=== PATIENT | female | born 1960 | race Caucasian/White ===

== ENCOUNTER 2018-11-22 02:38 | Emergency (ER) | payer MEDICAID ==
[~2018-11-22] VITALS: Ht 167.6 cm; Wt 55.0 kg
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
--- NOTE | 2018-11-22 02:55 | NUR ---
RECEIVED REPORT FROM MARGARET MISHRA TO ASSUME CARE OF PT. PT. MOVED FROM ED 19 TO ED02 FOR SECURED ROOM. SITTER IN [place]. PT. AWARE OF NEED FOR UA.
--- NOTE | 2018-11-22 03:04 | NUR ---
L2k initiated by jail. Garcia aware and on chart.
--- NOTE | 2018-11-22 03:12 | NUR ---
DR. MERRILL WAS IN TO EVAL PT. AND DISCUSS POC. PT. PROVIDED WITH WATER PER REQUEST. DENIES OTHER NEEDS AT THIS TIME. ALL SAFETY MEASURES OBSERVED. ROOM SECURED AND SITTER IN [place].
[2018-11-22 03:22] LABS: BASOPHILS # (AUTO) 0.03 x10^3/uL (0-0.1); BASOPHILS % (AUTO) 1 % (0-1); EOSINOPHILS # (AUTO) 0.14 x10^3/uL (0-0.4); EOSINOPHILS % (AUTO) 2 % (1-7); LYMPHOCYTES # (AUTO) 0.95 x10^3/uL (1-3.4); LYMPHOCYTES % (AUTO) 16 % (22-44); MD NO; MEAN CORPUSCULAR HEMOGLOBIN 28.1 pg (27.0-34.8); MEAN CORPUSCULAR HGB CONC 33.2 g/dL (32.4-35.8); MEAN CORPUSCULAR VOLUME 84.5 fL (80-100); MEAN PLATELET VOLUME 9.1 fL (7.4-10.4); MONOCYTES # (AUTO) 0.99 x10^3/uL (0.2-0.8); MONOCYTES % (AUTO) 16 % (2-9); NEUTROPHILS % (AUTO) 65 % (42-75); PLATELET COUNT 413 x10^3/uL (130-400); RED BLOOD COUNT 4.85 x10^6/uL (3.82-5.3); RED CELL DISTRIBUTION WIDTH 15.3 % (9.6-15.2)
[2018-11-22 03:35] LABS: ALANINE AMINOTRANSFERASE 26 U/L (12-78); ALBUMIN 3.5 g/dL (3.4-5.0); ANION GAP 7 mmol/L (5-15); CALCIUM 8.5 mg/dL (8.5-10.1); CHLORIDE 108 mmol/L (98-107); CREATININE 0.74 mg/dL (0.55-1.02); SALICYLATE LEVEL 3.4 mg/dL (2.8-20.0)
[2018-11-22 03:45] LABS: ALKALINE PHOSPHATASE 93 U/L (45-117); BILIRUBIN,TOTAL 0.3 mg/dL (0.2-1.0)
[2018-11-22 04:04] LABS: ACETAMINOPHEN < 2 mcg/mL (10-30)
--- NOTE | 2018-11-22 04:41 | NUR ---
PT. RESTING ON GURNEY WITH EYES CLOSED. NADN. EVEN CHEST RISE AND FALL VISIBLE. ALL SAFETY MEASURES OBSERVED. ROOM REMAINS SECURED. SITTER IN [place].
--- NOTE | 2018-11-22 04:56 | NUR ---
WOKE PT. AND REQUESTED URINE SAMPLE. PT. STATES "I AM TOO DEHYDRATED, I DON'T HAVE TO PEE." PT. ENCOURAGED TO DRINK WATER PROVIDED TO HER.
--- NOTE | 2018-11-22 05:48 | NUR ---
PT. CONTINUES RESTING ON GURNEY CURLED UP IN POSITION RIGHT SIDE LYING. PT. CONTINUES TO REFUSE TO PROVIDE UIRNE SAMPLE AT THIS TIME. ROOM REMAINS SECURED. SITTER IN [place].
--- NOTE | 2018-11-22 06:25 | NUR ---
REQUESTED URINE SAMPLE FROM PT. AGAIN. PT. STATES "I DON'T HAVE TIME TO RIGHT NOW" PT. BED PLACED IN SITTING POSITION AND PT. DRANK 1 CUP OF WATER. 2ND CUP OF WATER AT BS. PT. DENIES NEEDS AT THIS TIME. ROOM REMAINS SECURED, SITTER IN [place].
[2018-11-22] MEDS ORDERED: POTASSIUM CHLORIDE 20 MEQ TAB.ER.PRT PO ONE (06:30)
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
[2018-11-22] MEDS ORDERED: CITA20TA9 PO (06:43)
[2018-11-22] MEDS ORDERED: CARI3CAP PO (06:43)
--- NOTE | 2018-11-22 06:55 | NUR ---
REPORT TO MARGARET BENNETT.
[2018-11-22 07:04] LABS: AMPHETAMINE SCREEN, URINE Positive (Negative); BARBITURATE SCREEN, URINE Negative (Negative); BENZODIAZEPINE SCREEN, URINE Negative (Negative); CANNABINOID SCREEN, URINE Positive (Negative); COCAINE SCREEN, URINE Negative (Negative); METHADONE SCREEN, URINE Negative (Negative); OPIATE SCREEN, URINE Negative (Negative)
[2018-11-22 07:15] VITALS: BP 114/68
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
[2018-11-22] MEDS ORDERED: POTASSIUM CHLORIDE 20 MEQ TAB.ER.PRT ONE (07:51)
--- NOTE | 2018-11-22 07:53 | NUR ---
PT PROVIDED WITH ED DIET SECURITY TRAY.
--- NOTE | 2018-11-22 08:31 | NUR ---
ROOM SETUP FOR TELEPSYCH.
--- NOTE | 2018-11-22 08:59 | NUR ---
PT RESTING ON [facility]. SITTER IN PLACE. ROM SECURE. NELSONN.
--- NOTE | 2018-11-22 10:09 | NUR ---
Pt resting on [place]. Sitter in place. Resp even an unlabored. KYLE.
--- NOTE | 2018-11-22 10:46 | NUR ---
report to SOC over phone.
--- NOTE | 2018-11-22 11:00 | NUR ---
Pt resting on [place]. Sitter in place. Resp even an unlabored. KYLE.
--- NOTE | 2018-11-22 11:46 | NUR ---
Report from SOC post assessmnet. SOC recommends legal hold for pt.
--- NOTE | 2018-11-22 12:48 | NUR ---
Report to RN on 3E.
--- NOTE | 2018-11-22 13:08 | NUR ---
pt provided with ED security diet tray by yaneli.
== END 2018-11-22 13:49 ==
LOC: ED 03:49
DX: F39 Unspecified mood [affective] disorder (principal); F31.9 Bipolar disorder, unspecified; R45.850 Homicidal ideations
CPT/HCPCS: 36415; 80053; 80307; 84443; 85025; 99284

== ENCOUNTER 2018-11-22 13:26 | Inpatient (IN) | payer MEDICAID ==
[~2018-11-22] VITALS: Ht 167.6 cm; Wt 59.5 kg
[~2018-11-22 13:26] MED LIST: CARI3CAP PO; CITA20TA9 PO
[2018-11-22 13:57] VITALS: BP 130/81
[2018-11-22] MEDS ORDERED: POLYETHYLENE GLYCOL 17 GM PACKET PO PRN (14:00)
[2018-11-22] MEDS ORDERED: BISACODYL 10 MG SUPP PR PRN (14:00)
[2018-11-22] MEDS ORDERED: PLEASE ENTER HEIGHT AND WEIGHT MC SCH (14:00)
[2018-11-22] MEDS ORDERED: ACETAMINOPHEN 325 MG TABLET PO PRN (14:00)
[2018-11-22 14:15] VITALS: BP 130/81
[2018-11-22 14:52] LABS: BASOPHILS # (AUTO) 0.05 x10^3/uL (0-0.1); BASOPHILS % (AUTO) 1 % (0-1); EOSINOPHILS # (AUTO) 0.27 x10^3/uL (0-0.4); EOSINOPHILS % (AUTO) 4 % (1-7); LYMPHOCYTES # (AUTO) 1.92 x10^3/uL (1-3.4); LYMPHOCYTES % (AUTO) 29 % (22-44); MD NO; MEAN CORPUSCULAR HEMOGLOBIN 28.5 pg (27.0-34.8); MEAN CORPUSCULAR HGB CONC 33.5 g/dL (32.4-35.8); MEAN CORPUSCULAR VOLUME 84.9 fL (80-100); MEAN PLATELET VOLUME 9.3 fL (7.4-10.4); MONOCYTES # (AUTO) 0.95 x10^3/uL (0.2-0.8); MONOCYTES % (AUTO) 14 % (2-9); NEUTROPHILS # (AUTO) 3.51 x10^3/uL (1.8-6.8); NEUTROPHILS % (AUTO) 52 % (42-75); PLATELET COUNT 404 x10^3/uL (130-400); RED BLOOD COUNT 4.68 x10^6/uL (3.82-5.3); RED CELL DISTRIBUTION WIDTH 15.7 % (9.6-15.2)
[2018-11-22 14:53] LABS: HCT (SEDRATE) 39.8 % (34.6-47.8)
[2018-11-22 14:56] LABS: ALBUMIN 3.1 g/dL (3.4-5.0); ANION GAP 6 mmol/L (5-15); CALCIUM 8.4 mg/dL (8.5-10.1); CHLORIDE 107 mmol/L (98-107)
[2018-11-22 15:12] LABS: ALANINE AMINOTRANSFERASE 25 U/L (12-78); ALKALINE PHOSPHATASE 110 U/L (45-117); BILIRUBIN,TOTAL 0.2 mg/dL (0.2-1.0); CHOL/HDL RATIO 2.7; CHOLESTEROL, TOTAL 135 mg/dL (140-239); CREATININE 0.75 mg/dL (0.55-1.02); HDL CHOL % 37 % (28-40); HDL CHOLESTEROL (DIRECT) 50 mg/dL (40-60); LDL CHOLESTEROL,CALCULATED 62 mg/dL (54-169); LDL/HDL RATIO 1.2 (0.5-3.0); T4 (THYROXINE) 7.2 mcg/dL (4.8-13.9); TOTAL PROTEIN 6.3 g/dL (6.4-8.2); TRIGLYCERIDES 114 mg/dL (50-200); VLDL CHOLESTEROL 23 mg/dL (0-25)
[2018-11-22 15:31] LABS: FOLATE LEVEL 13.8 ng/mL (3.1-17.5)
[2018-11-22 16:55] LABS: HEMOGLOBIN A1C 5.7 % (4.2-6.3)
[2018-11-22 19:19] VITALS: BP 119/67
[2018-11-22] MEDS: OLANZAPINE 5 MG TABLET PO SCH (20:04)
[2018-11-22] MEDS: BUPRENORPHINE/NALOXONE 2-0.5MG SL SCH (20:04)
[2018-11-22 21:40] LABS: CULTURE INDICATED? YES; MICROSCOPIC INDICATED
[2018-11-23 07:17] VITALS: BP 91/51
[2018-11-23] MEDS ORDERED: POTASSIUM CHLORIDE 20 MEQ TAB.ER.PRT PO SCH (08:00)
[2018-11-23 08:44] LABS: CALCIUM 8.3 mg/dL (8.5-10.1); CHLORIDE 110 mmol/L (98-107)
[2018-11-23 08:54] LABS: ANION GAP 6 mmol/L (5-15)
[2018-11-23] MEDS: SENNA/DOCUSATE TABLET PO SCH (09:41)
[2018-11-23] MEDS: BUPRENORPHINE/NALOXONE 2-0.5MG SL SCH ×2 (09:41→20:21)
[2018-11-23] MEDS: CITALOPRAM 20 MG TABLET PO SCH (09:43)
[2018-11-23 19:35] VITALS: BP 93/55
[2018-11-23] MEDS: OLANZAPINE 5 MG TABLET PO SCH (20:21)
[2018-11-23 21:16] LABS: MICROSCOPIC AUTO
[2018-11-23 21:21] LABS: CULTURE INDICATED? YES
[2018-11-24 07:17] VITALS: BP 103/65
[2018-11-24] MEDS: CITALOPRAM 20 MG TABLET PO SCH (08:41)
[2018-11-24] MEDS: BUPRENORPHINE/NALOXONE 2-0.5MG SL SCH ×2 (08:41→20:46)
[2018-11-24] MEDS: SENNA/DOCUSATE TABLET PO SCH (08:41)
[2018-11-24] MEDS ORDERED: LORazepam 1MG TABLET ONE (13:07)
[2018-11-24] MEDS ORDERED: LORazepam 1MG TABLET PO ONE (13:30)
[2018-11-24 16:26] VITALS: BP 104/58
[2018-11-24] MEDS: METHOCARBAMOL 500 MG TABLET PO PRN (16:26)
[2018-11-24] MEDS ORDERED: NICOTINE 21 MG/24 HR PATCH.TD24 ONE (18:07)
[2018-11-24] MEDS: NICOTINE 21 MG/24 HR PATCH.TD24 TD SCH (18:18)
[2018-11-24 19:45] VITALS: BP 94/58
[2018-11-24] MEDS: CEFDINIR 300 MG CAPSULE PO SCH (20:46)
[2018-11-24] MEDS: OLANZAPINE 5 MG TABLET PO SCH (20:46)
[2018-11-25 07:20] VITALS: BP 102/63
[2018-11-25] MEDS: SENNA/DOCUSATE TABLET PO SCH (08:59)
[2018-11-25] MEDS: CITALOPRAM 20 MG TABLET PO SCH (08:59)
[2018-11-25] MEDS: CEFDINIR 300 MG CAPSULE PO SCH ×2 (08:59→20:22)
[2018-11-25] MEDS: BUPRENORPHINE/NALOXONE 2-0.5MG SL SCH ×2 (08:59→20:22)
[2018-11-25] MEDS: NICOTINE 21 MG/24 HR PATCH.TD24 TD SCH (09:00)
[2018-11-25] MEDS ORDERED: BUPRENORPHINE/NALOXONE 2-0.5MG SL ONE (16:00)
[2018-11-25 19:33] VITALS: BP 96/58
[2018-11-25] MEDS: OLANZAPINE 5 MG TABLET PO SCH (20:22)
[2018-11-25] MEDS ORDERED: LORazepam 1MG TABLET PO ONE (21:30)
[2018-11-25] MEDS: CARBAMAZEPINE XR 200 MG TABLET PO SCH (21:30)
[2018-11-26 07:17] VITALS: BP 122/68
[2018-11-26] MEDS: CEFDINIR 300 MG CAPSULE PO SCH ×2 (09:36→19:53)
[2018-11-26] MEDS: CITALOPRAM 20 MG TABLET PO SCH (09:36)
[2018-11-26] MEDS: SENNA/DOCUSATE TABLET PO SCH (09:37)
[2018-11-26] MEDS: NICOTINE 21 MG/24 HR PATCH.TD24 TD SCH ×2 (09:37→09:52)
[2018-11-26] MEDS: BUPRENORPHINE/NALOXONE 2-0.5MG SL SCH ×2 (10:39→19:54)
[2018-11-26 14:25] VITALS: BP 116/86
[2018-11-26] MEDS: METHOCARBAMOL 500 MG TABLET PO PRN (14:31)
[2018-11-26 19:33] VITALS: BP 104/61
[2018-11-26] MEDS: CARBAMAZEPINE XR 200 MG TABLET PO SCH (19:53)
[2018-11-26] MEDS: OLANZAPINE 5 MG TABLET PO SCH (19:53)
[2018-11-27] MEDS ORDERED: HALOPERIDOL 5 MG/ML ONE (04:14)
[2018-11-27] MEDS ORDERED: LORazepam 2 MG/ML, 1ML ONE (04:14)
[2018-11-27] MEDS ORDERED: LORazepam 2 MG/ML, 1ML IM ONE (04:30)
[2018-11-27] MEDS ORDERED: HALOPERIDOL 5 MG/ML IM ONE (04:30)
[2018-11-27 08:28] VITALS: BP 108/63
[2018-11-27] MEDS: NICOTINE 21 MG/24 HR PATCH.TD24 TD SCH (09:00)
[2018-11-27] MEDS: BUPRENORPHINE/NALOXONE 2-0.5MG SL SCH ×2 (09:00→20:04)
[2018-11-27] MEDS: SENNA/DOCUSATE TABLET PO SCH (09:08)
[2018-11-27] MEDS: CEFDINIR 300 MG CAPSULE PO SCH ×2 (09:08→20:04)
[2018-11-27] MEDS: CITALOPRAM 20 MG TABLET PO SCH (09:08)
[2018-11-27] MEDS ORDERED: LORazepam 1MG TABLET ONE (13:11)
[2018-11-27] MEDS ORDERED: HALOPERIDOL 5 MG TABLET ONE (13:11)
[2018-11-27] MEDS ORDERED: LORazepam 1MG TABLET PO ONE (13:30)
[2018-11-27] MEDS ORDERED: HALOPERIDOL 5 MG TABLET PO ONE (13:30)
[2018-11-27 19:42] VITALS: BP 107/63
[2018-11-27] MEDS: CARBAMAZEPINE XR 200 MG TABLET PO SCH (20:05)
[2018-11-27] MEDS ORDERED: RISPERIDONE 1 MG TABLET PO SCH (21:00)
[2018-11-28 07:22] VITALS: BP 99/56
[2018-11-28] MEDS: CEFDINIR 300 MG CAPSULE PO SCH (08:44)
[2018-11-28] MEDS: BUPRENORPHINE/NALOXONE 2-0.5MG SL SCH (08:45)
[2018-11-28] MEDS: CARBAMAZEPINE XR 200 MG TABLET PO SCH (08:45)
[2018-11-28] MEDS: SENNA/DOCUSATE TABLET PO SCH (08:45)
[2018-11-28] MEDS: CITALOPRAM 20 MG TABLET PO SCH (08:45)
[2018-11-28] MEDS: NICOTINE 21 MG/24 HR PATCH.TD24 TD SCH (08:45)
== END 2018-11-28 15:00 | disposition left against medical advice (07) | DRG 885 ==
LOC: 3E 13:50
PROVIDERS: ADMIT Psychiatry & Neurology Psychosomatic Medicine; ATTEND Psychiatry & Neurology Psychosomatic Medicine
DX: F31.60 Bipolar disorder, current episode mixed, unspecified (principal); E44.1 Mild protein-calorie malnutrition; F11.20 Opioid dependence, uncomplicated; F15.20 Other stimulant dependence, uncomplicated; R45.851 Suicidal ideations; E87.6 Hypokalemia; F22 Delusional disorders; F60.3 Borderline personality disorder; R45.850 Homicidal ideations; Z68.21 Body mass index [BMI] 21.0-21.9, adult; S61.419A Laceration without foreign body of unspecified hand, initial encounter; S61.519A Laceration without foreign body of unspecified wrist, initial encounter; X78.9XXA Intentional self-harm by unspecified sharp object, initial encounter; Z96.643 Presence of artificial hip joint, bilateral; Z72.0 Tobacco use; R73.9 Hyperglycemia, unspecified; R79.89 Other specified abnormal findings of blood chemistry; Z88.1 Allergy status to other antibiotic agents
CPT/HCPCS: 36415; J0572; 71045; 80048; 80053; 80061; 81001; 82140; 82607; 82746; 83036; 84436; 84443; 85025; 85651; 86592; 87077; 87086; 87186; 93005; J1630; J2060

== ENCOUNTER 2019-11-28 19:50 | Emergency (ER) | payer MEDICAID ==
[~2019-11-28] VITALS: Ht 167.6 cm; Wt 52.0 kg
--- NOTE | 2019-11-28 19:53 | NUR ---
urine sample taken to lab
--- NOTE | 2019-11-28 20:05 | NUR ---
pt resting on gurney, room secured, belongings bag x1 placed in security locker, sitter at doorway for continous monitoring
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
[2019-11-28 20:14] LABS: BASOPHILS # (AUTO) 0.06 x10^3/uL (0-0.1); BASOPHILS % (AUTO) 1 % (0-1); EOSINOPHILS # (AUTO) 0.21 x10^3/uL (0-0.4); EOSINOPHILS % (AUTO) 4 % (1-7); LYMPHOCYTES # (AUTO) 1.97 x10^3/uL (1-3.4); LYMPHOCYTES % (AUTO) 38 % (22-44); MD NO; MEAN CORPUSCULAR HEMOGLOBIN 27.9 pg (27.0-34.8); MEAN CORPUSCULAR HGB CONC 32.9 g/dL (32.4-35.8); MEAN CORPUSCULAR VOLUME 84.9 fL (80-100); MEAN PLATELET VOLUME 7.9 fL (7.4-10.4); MONOCYTES # (AUTO) 0.78 x10^3/uL (0.2-0.8); MONOCYTES % (AUTO) 15 % (2-9); NEUTROPHILS # (AUTO) 2.18 x10^3/uL (1.8-6.8); NEUTROPHILS % (AUTO) 42 % (42-75); PLATELET COUNT 493 x10^3/uL (130-400); RED BLOOD COUNT 4.73 x10^6/uL (3.82-5.3); RED CELL DISTRIBUTION WIDTH 14.2 % (9.6-15.2)
--- NOTE | 2019-11-28 20:24 | NUR ---
FLOAT RN: PT PROVIDED WITH SANDWICH (TOOTHPICKS REMOVED), CHIPS AND A DRINK. GRATEFUL FOR THE MEAL. CALM AND COOPERATIVE AT THIS TIME. ROOM REMAINS SECURE WITH SITTER OUTSIDE DOOR.
--- NOTE | 2019-11-28 20:25 | NUR ---
provided pt with sandwich, chips and drink, si precautions maintained. sitter remains at doorway for continous monitoring
[2019-11-28 20:26] LABS: ALANINE AMINOTRANSFERASE 24 U/L (12-78); ALBUMIN 3.4 g/dL (3.4-5.0); ANION GAP 6 mmol/L (5-15); CALCIUM 8.4 mg/dL (8.5-10.1); CHLORIDE 107 mmol/L (98-107); CREATININE 0.68 mg/dL (0.55-1.02); SALICYLATE LEVEL 3.7 mg/dL (2.8-20.0)
[2019-11-28 20:28] LABS: ALKALINE PHOSPHATASE 104 U/L (45-117); BILIRUBIN,TOTAL 0.2 mg/dL (0.2-1.0); TOTAL PROTEIN 7.5 g/dL (6.4-8.2)
[2019-11-28 20:31] LABS: AMPHETAMINE SCREEN, URINE Positive (Negative); BARBITURATE SCREEN, URINE Negative (Negative); BENZODIAZEPINE SCREEN, URINE Negative (Negative); CANNABINOID SCREEN, URINE Positive (Negative); COCAINE SCREEN, URINE Negative (Negative); METHADONE SCREEN, URINE Negative (Negative); OPIATE SCREEN, URINE Negative (Negative)
[2019-11-28] MEDS ORDERED: OLANZAPINE 10 MG TABLET ONE (20:37)
[2019-11-28] MEDS ORDERED: CITALOPRAM 20 MG TABLET ONE (20:37)
[2019-11-28] MEDS: OLANZAPINE 10 MG TABLET PO SCH (21:05)
[2019-11-28] MEDS: CITALOPRAM 20 MG TABLET PO SCH (21:05)
--- NOTE | 2019-11-28 21:45 | NUR ---
pt resting calmly, nad, respirations even and unlabored, sitter at doorway for continous monitoring
--- NOTE | 2019-11-28 22:18 | NUR ---
pt resting with eyes closed, nadn, equal chest rise/fall observed, sitter at doorway for continous monitoring
--- NOTE | 2019-11-28 23:30 | NUR ---
pt resting with eyes closed, nadn, equal chest rise/fall observed, sitter at doorway for continous monitoring
--- NOTE | 2019-11-29 00:33 | NUR ---
pt resting with eyes closed, nadn, equal chest rise/fall observed, sitter at doorway for continous monitoring
--- NOTE | 2019-11-29 00:46 | NUR ---
Zaire sigala in [facility] - 11/29/19 at 0046 by ELDER JAGJIT RN: renetta Mclaughlin at [facility], pt denied
--- NOTE | 2019-11-29 00:52 | NUR ---
TP RN: Taylor, RN with [facility] will look into possible admission of this pt
--- NOTE | 2019-11-29 01:22 | NUR ---
Pt placed in hospital bed. Resp even and unlabored, sitter in direct line of sight.
--- NOTE | 2019-11-29 02:02 | NUR ---
PT RESTING IN BED WITH EYES CLOSED, NADN, EQUAL CHEST RISE/FALL OBSERVED, SITTER AT DOORWAY FOR CONTINOUS MONITORING
--- NOTE | 2019-11-29 03:03 | NUR ---
PT RESTING IN BED WITH EYES CLOSED, EQUAL CHEST RISE/FALL OBSERVED, SITTER AT DOORWAY FOR CONTINOUS MONITORING
--- NOTE | 2019-11-29 03:19 | NUR ---
TP: packed faxed to all psych facilities.
--- NOTE | 2019-11-29 03:25 | NUR ---
MT: 3E CALLED AND DECLINED PATIENT ADMIT
--- NOTE | 2019-11-29 03:48 | NUR ---
REPORT GIVEN TO MARGARET ENCISO
--- NOTE | 2019-11-29 03:56 | NUR ---
MT: [facility] CALLED AND STATED PT COULD BE ADMITTED BUT IS SELF-PAY ONLY. WILL ASK PATIENT WHEN AWAKE.
--- NOTE | 2019-11-29 04:25 | NUR ---
Pt resting comfortably, respirations even and unlabored. Sitter in direct line of sight.
--- NOTE | 2019-11-29 07:00 | NUR ---
report received from Vipin Morel. patient in bed resting quietly. will assess and take vitals when bfast arrives, ordered.
--- NOTE | 2019-11-29 08:13 | NUR ---
got patient breakfast, she is mostly sleeping but said she will eat it later. asked why she is here and patient states she is depressed and suicidal. she is calm and cooperative.
--- NOTE | 2019-11-29 08:18 | NUR ---
patient has breakfast and is eating it quietly. patient calm and does claim to be depressed and suicidal.
[2019-11-29] MEDS: OLANZAPINE 10 MG TABLET PO SCH (08:35)
[2019-11-29] MEDS: CITALOPRAM 20 MG TABLET PO SCH (08:35)
[2019-11-29] MEDS ORDERED: OLANZAPINE 10 MG TABLET ONE (08:44)
[2019-11-29] MEDS ORDERED: CITALOPRAM 20 MG TABLET ONE (08:44)
[2019-11-29] MEDS ORDERED: CITALOPRAM 20 MG TABLET PO SCH ×2 (09:00)
[2019-11-29] MEDS ORDERED: OLANZAPINE 10 MG TABLET PO SCH ×2 (09:00)
--- NOTE | 2019-11-29 10:31 | NUR ---
patient calm in bed, resting quietly
--- NOTE | 2019-11-29 12:21 | NUR ---
PATIENT SEEN BY [facility]. APPARENTLY PATIENT IS ALSO ASSIGNED ROOM AT [facility].
--- NOTE | 2019-11-29 12:38 | NUR ---
patient report called to pedro do at [facility]. patient rtg once transport arrives.
--- NOTE | 2019-11-29 12:40 | NUR ---
THROUGHPUT: PT ON LEGAL HOLD MEDICALLY CLEARED RECEIVED ACCEPTANCE FROM [facility], BY DR.TAN BHAVESH. PACKET COMPLETED, CALLED [facility] SPOKE WITH DALIA DUE TO MEDICAID. CALLED [facility] PICKUP TIME AT 1400
--- NOTE | 2019-11-29 12:44 | NUR ---
[facility] to come at 14:00.
[2019-11-29 12:53] VITALS: BP 122/78
== END 2019-11-29 14:07 ==
LOC: ED 23:07
DX: R45.851 Suicidal ideations (principal); R45.850 Homicidal ideations; F15.10 Other stimulant abuse, uncomplicated; F17.210 Nicotine dependence, cigarettes, uncomplicated; F11.10 Opioid abuse, uncomplicated; Z72.9 Problem related to lifestyle, unspecified
CPT/HCPCS: 36415; 80053; 80307; 85025; 99285